=== PATIENT | female | born 1990 | race Caucasian/White ===

== ENCOUNTER 2023-01-26 00:45 | Emergency (ER) | payer MEDICAID ==
[~2023-01-26] VITALS: Ht 165.1 cm; Wt 99.8 kg
[2023-01-26 00:52] VITALS: BP 155/102; PULSE 112; RESP 16; TEMP 98.1; O2SAT 99
[2023-01-26] MEDS ORDERED: ACETAMINOPHEN EXTRA STRENGTH 500 MG TAB PO ONE (02:30)
[2023-01-26 02:51] VITALS: BP 138/89; PULSE 76; RESP 18; TEMP 98.1; O2SAT 99
== END 2023-01-26 02:51 | disposition home or self-care (01) ==
LOC: MED 00:45
DX: S01.01XA Laceration without foreign body of scalp, initial encounter (principal); I10 Essential (primary) hypertension; E11.9 Type 2 diabetes mellitus without complications; W51.XXXA Accidental striking against or bumped into by another person, initial encounter; Y93.89 Activity, other specified; Y92.89 Other specified places as the place of occurrence of the external cause; Y99.8 Other external cause status
CPT/HCPCS: 12001; 90471; 90715; 99283